=== PATIENT | male | born 1975 | race Asian ===

== ENCOUNTER 2024-05-31 08:20 | Emergency (ER) | payer BC, SELFPAY ==
[2024-05-31 08:29] VITALS: BP 118/82
[2024-05-31 08:42] VITALS: BP 122/87
--- NOTE | 2024-05-31 08:57 | ED.GENMED ---
History of Present Illness
General
Chief Complaint: Chest Pain
Source: patient
Time Seen by Provider: 05/31/24 08:37
History of Present Illness
History of Present Illness:
49-year-old male presents to the emergency room complaining of pain in his bilateral shoulders which began last night. The discomfort is 'deep inside'. Nothing seems to make it better or worse. He denies associated shortness of breath,
diaphoresis. He does feel a bit nauseous at times. He felt lightheaded as well. Patient has a history of coronary artery disease with several stents placed at [facility] about 1-1/2 to 2 years ago. Patient has not had any difficulty
performing his daily activities recently. He does endorse a mild cough recently
Phy Exam
Physical Exam
Physical Exam:
General: Awake, Alert, Oriented X3. No acute distress.
Vitals: unremarkable
Head: Atraumatic
Eyes: Pupils equal, EOMI
Throat: Airway intact, no exudates
Neck: Trachea midline
Lungs: Clear and equal b/l
Heart: Regular rate, no murmurs
Abd: Soft, Nontender, No pulsatile mass
Neuro: Nonfocal
Skin: Warm, dry, no rash
Extremities: pulses equal b/l, no edema
Scores
Heart Score for Chest Pain Patients
STEMI patient?: Not applicable
Course
Orders/Labs/Results
Orders:
Orders
05/31/24 08:28
Electrocardiogram (*1) Urgent
Reason for Study: Chest Pain
EKG- Treatment ONCE
05/31/24 08:56
Cardiac Monitoring- Treatment ONCE
Complete Blood Count/With Diff Urgent
Comprehensive Metabolic Panel Urgent
Magnesium Urgent
Troponin I Urgent
05/31/24 08:57
CR Chest - 2 Views Urgent
Comment:
Reason For Exam: chest pain
05/31/24 09:14
COVID-19 Antigen Urgent
Source: Nasal Swab
Influenza A+B Rapid Molecular Urgent
[facility] Source: Nasal Swab
Specimen Description:
05/31/24 09:57
Acetaminophen [Tylenol] 1,000 mg PO NOW STA
Abnormal Lab Results
05/31/24
08:56
WBC 4.5 L 10^3/uL
(4.8-10.8)
RBC 4.57 L 10^6/uL
(4.70-6.10)
Absolute Lymphs (auto) 1.0 L 10^3/uL
(1.2-3.4)
Monocytes % 14.3 H %
(1.7-9.3)
Eosinophils % 15.6 H %
(0-6)
Chloride 108 H mmol/L
(98-107)
Glucose 114 H mg/dl
(70-99)
05/31/24 08:56
05/31/24 08:56
Vital Signs
Initial and Last Documented VS:
Initial Vital Signs
Temp Pulse Resp BP Pulse Ox
97.5 F 77 18 118/82 98
05/31/24 08:29 05/31/24 08:29 05/31/24 08:29 05/31/24 08:29 05/31/24 08:29
Last Documented Vital Signs
Temp Pulse Resp BP Pulse Ox
97.5 F 65 21 111/80 97
05/31/24 08:29 05/31/24 10:15 05/31/24 10:15 05/31/24 10:00 05/31/24 10:15
MDM/Problems Addressed
Differential Diagnosis Includes:
Angina, chest wall pain, muscle strain, viral illness
MDM/Problems Addressed:
Patient presents with bilateral shoulder pain upper back pain and neck pain. He does endorse a cough as well. Labs show mildly low white blood cell count but otherwise normal labs. Chest x-ray shows no acute abnormalities. EKG shows no ischemic
changes. His troponin is normal. Influenza test is actually positive for influenza B. This is not surprising given his cough and muscle aches. I think this nicely explains the patient's symptoms. No further workup necessary in the emergency at
this time. Patient stable for discharge home and symptomatic care.
*Radiology
Radiology exam reviewed: preliminary read by ED provider (No acute abnormalities on my review of the patient's chest x-ray)
*Pulse Oximetry
Patient hypoxic: no
*EKG
Interpreted by ED Provider?: Yes
Interpretation: abnormal
Comparison EKG: no comparison EKG present
Heart Rate: 65
Rate: normal
Rhythm: sinus
[place]: normal axis
Interval: normal interval
Ischemia: T-wave inversion (t wave inversion in III and aVF w/o reciprocal changes. ? baseline)
*Isotope Technologist Interpretation
Rate: normal
Interpretation: normal
*Critical Care Note
Total Time (30-74mins, 75-104mins- exclusive of procedures): Not Applicable
ED Attending Note
-
Portions of this chart may have been created with voice recognition software.� Occasional wrong word or��sound alike� substitutions may have occurred due to the inherent limitations of voice recognition software.
Discharge Plan
Departure
Patient Disposition: Home (Routine Discharge)
Date of Disposition: 05/31/24
Time of Disposition: 09:56
Patient with high blood pressure during this ER visit?: No
Condition: Good
Discharge Problem:
Influenza B
Instructions: Flu in adults - ED discharge instructions
Interventions
Interventions:
*Risk Screen - Suicide Last Done: 05/31/24 08:29
*General Assessment Last Done: 05/31/24 08:29
*Neglect/Abuse Screening Last Done: 05/31/24 08:29
*ED- Fall Risk Assessment Last Done: 05/31/24 09:22
*ED COVID-19 Vaccine History Last Done: 05/31/24 09:22
*Nursing Disposition Last Done: 05/31/24 10:29
ED- Cardiac Assessment Last Done: 05/31/24 09:22
Discharge Date and Time
Discharge Date/Time: 05/31/24 10:30
Print Language: YI
[2024-05-31 09:00] VITALS: BP 105/78
[2024-05-31 09:11] LABS: % Basophils 0.4 % (0-2); % Eosinophils 15.6 % (0-6); % Immature Granulocytes 0.2 % (0-0.5); % Lymphocytes 23.2 % (20.5-51.1); % Monocytes 14.3 % (1.7-9.3); % Neutrophils 46.3 % (42.2-75.2); Absolute Eosinophils 0.7 10^3/uL (0-0.7); Absolute Monocytes 0.6 10^3/uL (0.1-0.6); Absolute Neutrophils 2.1 10^3/uL (1.4-6.5); Hematocrit 40.8 % (39.0-52.0); Hemoglobin 13.9 g/dL (13.0-18.0); Mean Corp Hgb Conc. 34.1 g/dL (33.0-37.0); Mean Corpuscular Hgb 30.4 pg (27.0-31.0); Mean Corpuscular Volume 89.3 fL (80.0-94.0); Mean Platelet Volume 9.2 fL (7.4-10.4); Nucleated Red Blood Cells % 0 % (-); Platelet Count 154 10^3/uL (130-400); Red Blood Cell Count 4.57 10^6/uL (4.70-6.10); Red Cell Dist. Width 11.9 % (11.5-14.5); White Blood Cell Count 4.5 10^3/uL (4.8-10.8)
[2024-05-31 09:24] LABS: ALT (SGPT) 44 U/L (0-50); AST (SGOT) 32 U/L (17-59); Albumin 4.2 g/dl (3.5-5.0); Alkaline Phosphatase 69 U/L (38-126); Blood Urea Nitrogen 12 mg/dl (9-20); Calcium 8.8 mg/dl (8.4-10.2); Carbon Dioxide 24 mmol/L (22-30); Chloride 108 mmol/L (98-107); Glucose 114 mg/dl (70-99); Magnesium 2.2 mg/dl (1.6-2.3); Potassium 4.1 mmol/L (3.5-5.1); Sodium 139 mmol/L (135-145); Total Bilirubin 0.8 mg/dl (0.2-1.3); Total Protein 6.8 g/dl (6.3-8.2); eGFR > 60.00
[2024-05-31 09:36] LABS: Troponin I < 0.012 ng/ml
[2024-05-31 09:42] LABS: COVID-19 Antigen Negative (Negative)
[2024-05-31 10:00] VITALS: BP 111/80
[2024-05-31] MEDS: TYLENOL 1000 MG PO (10:22)
== END 2024-05-31 10:30 | disposition home or self-care (01) ==
LOC: EMR 08:20
PROVIDERS: EMERGENCY PHYSICIAN Emergency Medicine; FAMILY PHYSICIAN Nurse Practitioner Family
DX: J10.2 Influenza due to other identified influenza virus with gastrointestinal manifestations (principal); R11.0 Nausea; R42 Dizziness and giddiness; M54.2 Cervicalgia; Z11.52 Encounter for screening for COVID-19; I25.10 Atherosclerotic heart disease of native coronary artery without angina pectoris; Z95.5 Presence of coronary angioplasty implant and graft
CPT/HCPCS: 99283; 71046; 80053; 83735; 84484; 85025; 87502; 87811; 93005